=== PATIENT | male | born 1985 | race Caucasian/White ===

== ENCOUNTER 2017-12-10 11:01 | Day surgery (SDC) | payer OTHER ==
[2017-12-10] MEDS ORDERED: CEFAZOLIN/Water 2 GM/20 ML SYRINGE ONE (12:51)
[2017-12-10] MEDS ORDERED: Fentanyl 100 MCG/2 ML VIAL ONE ×2 (12:58→14:50)
[2017-12-10] MEDS ORDERED: Lidocaine 1% w/Epinephrine 1:200K 30 ML VIAL ONE (13:24)
[2017-12-10] MEDS ORDERED: HYDROmorphone 0.5 MG/0.5 ML SYRINGE ONE (15:18)
[2017-12-10] MEDS ORDERED: Ketorolac Tromethamine 30 MG/ML VIAL ONE (16:17)
[2017-12-10] MEDS ORDERED: Glycopyrrolate 0.2 MG/ML 5 ML SYRINGE ONE (16:17)
[2017-12-10] MEDS ORDERED: Dexamethasone 20 MG/5 ML VIAL ONE (16:17)
[2017-12-10] MEDS ORDERED: PROPOFOL 200 MG/20 ML VIAL ONE (16:17)
[2017-12-10] MEDS ORDERED: Ondansetron PF 4 MG/2 ML Vial ONE (16:17)
[2017-12-10] MEDS ORDERED: Metoclopramide HCl 10 MG/2 ML VIAL ONE (16:17)
[2017-12-10] MEDS ORDERED: Lidocaine 1% PF 5 ML VIAL ONE (16:17)
--- NOTE | 2017-12-11 00:22 | OP ---
DATE OF PROCEDURE: 12/10/2017 PREOPERATIVE DIAGNOSIS: Left Achilles tendon full thickness tear. POSTOPERATIVE DIAGNOSIS: Left Achilles tendon full thickness tear. PROCEDURE PERFORMED: 1. Left Achilles tendon repair, open. 2. Short leg splint. STAFF: Hardy Aguilar M.D. COACH DRIVER: Aman Oh. ANESTHESIA: Dr. Garza. The patient received general endotracheal intubation with 10 mL of 1% li docaine with epinephrine. ESTIMATED BLOOD LOSS: 25 mL TOURNIQUET TIME: None. IMPLANTS: 2-0 FiberLoop, 2-0 FiberWire. COMPLICATIONS: None. HISTORY OF PRESENT ILLNESS: Mr. 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, who p resents after injuring his ankle on 12/06/2017 playing basketball. The patient felt a pop immediatel y and unable to ambulate. The patient's pain is currently controlled with nonsteroidal anti-inflamma tories. The patient has x-ray, no fracture, but had a palpable defect, positive Ramachandran. I discuss ed the risks and benefits of the left open Achilles repair to include pain, scar, bleeding, infection , damage to vital structures, nerves, arteries, tendons, damage to nerve, need for further procedures , failure of repair, damage to vital structures, continued pain despite surgical intervention. The p atient understood the risks and benefits of the procedure and elected to proceed. DESCRIPTION OF PROCEDURE: Timeout was performed designating the patient's left lower extremity as th e operative site based on sight, consents and markings. After completion of timeout, the patient had been intubated. He was placed in a prone position with all bony prominences well padded. Left lowe r extremity was prepped and draped in a sterile fashion. The skin had been shaved before prep. The patient had an incision made on the medial aspect of his Achilles dissecting down to the patient's pe ritenon. The peritenon was split and where the rupture was found. We split longitudinally to help w ith the peritenon closure. Plantaris was visualized medially, the patient had a FiberWire. A Fiber Loop passed of the full thickness Achilles tear and then used a #2 with running Krackow locking stitches up and down to help with the suture. We passed the coarse sutures through the opposite end sides sewed knots and the patient was in a little bit of plantar flexion, we then passed the needles back inferiorly and took a knot from each side to pass the second set of core sutures on the a nterior aspect of the tendon. We then did a running 0 Vicryl stitch at the level of the injury to he lp with backing up this stitch for extra strength. We then closed the peritenon. Thus we could prox imally and distally with 2-0 Vicryl overlaid the tendon. We then washed. We closed with 2-0 subcu a nd then 3-0 nylon horizontal mattress sutures. The patient was placed in a posterior splint for a slight plantarflexion, the patient will follow up me in 10-14 days, remain nonweightbearing until that time. Patient was injected with lidocaine after completion of the skin incision.
== END 2017-12-10 16:25 | disposition home or self-care (01) ==
LOC: SDC 11:01
PROVIDERS: ATTEND Orthopaedic Surgery
PROC: 0LQP0ZZ Repair Left Lower Leg Tendon, Open Approach (ICD-10-PCS; principal; 2017-12-10)
DX: S86.012A Strain of left Achilles tendon, initial encounter (principal); Y93.67 Activity, basketball; Z82.49 Family history of ischemic heart disease and other diseases of the circulatory system; Z98.890 Other specified postprocedural states
CPT/HCPCS: 96374; J1100; J1170; J1885; J2001; J2405; J2704; J2765; J3010

== ENCOUNTER 2018-02-04 12:29 | Outpatient (CLI) | payer OTHER ==
--- NOTE | 2018-02-04 14:25 | MRI ---
MRI OF LEFT ANKLE WITHOUT CONTRAST: HISTORY: S86.012D, left Achilles rupture. FINDINGS: Evidence of prior Achilles tendon repair. There is a complete rupture of the repair site with a 1.7 cm gap. The ruptured edges are extensively frayed. There is enthesitis of the insertion of the Achilles tendon upon the calcaneus. No significant retro calcaneal bursal effusion. Moderate fluid in the peritenon and surrounding the rupture. There is extensive susceptibility along the Achilles tendon proximally and distally including the myotendinous junction. Moderate tenosynovial fluid at posterior tibial tendon near the navicular insertion which is abnormal . Extensor tendon is unremarkable. LIGAMENTS: The TFL and the PITFL are intact. There is thickening of the anterior talofibular ligament with smal l osteophyte formation as well as surrounding edema suggesting a healed tear. The calcaneofibular li gament is also mildly thickened. The deltoid is unremarkable. BONES: The marrow edema is somewhat patchy for age. There is a focal area of abnormal edema in the lateral talar dome in the mid portion of the talar dome. This is confirmed on the coronal and the PD fat-sat images. The overlying cartilage appears to be thinned. No fracture or dislocation is appreciated. SOFT TISSUES: There is moderate dorsal soft tissue edema of the mid foot. IMPRESSION: 1. Full-thickness rupture of the Achilles tendon proximal to the insertion site 6.5 cm with a 1.5 cm gap. The tendon appears to have a prior repair and there is extensive fraying of the torn tendon fi bers. 2. 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 3. Likely an old osteochondral defect of the lateral talar dome with a small focus of subchondral ed fabiola and overlying cartilage thinning. This is not well evaluated on this examination due to obliquit y of the scan planes. 4. Mild posterior tibial tenosynovitis. POS: [facility]
== END 2018-02-04 12:30 | disposition home or self-care (01) ==
LOC: SCSMRI 12:29
PROVIDERS: ATTEND Orthopaedic Surgery
DX: S86.012D Strain of left Achilles tendon, subsequent encounter (principal); M65.862 Other synovitis and tenosynovitis, left lower leg